=== PATIENT | female | born 1945 | race Caucasian/White ===

== ENCOUNTER 2020-01-18 15:41 | Emergency (ER) | payer MEDICARE, SELFPAY ==
--- NOTE | 2020-01-18 15:52 | ED.SKABFB ---
HPI - Skin/Abscess/Foreign Bdy General Chief complaint: Skin/Abscess/Foreign Body Stated complaint: possible insect bite Time Seen by Provider: 01/18/20 15:52 Source: patient and RN notes reviewed History of Present Illness HPI narrative: Patient is a 74-year-old female who presents the urgent care with complaints of a cat bite left hand to the right hand. Patient states it was from her own cat and her cat is up-to-date on their rabies vaccinations. Patient states that her doctor sent her because she might need the hand drained . Patient is unsure if she is up-to-date on her tetanus. States that the hand is swollen and red but currently denies of any pain, nausea, vomiting, fever. Patient states that she is cleaned it with alcohol and peroxide as well as taking Aleve for the pain. No other acute complaints. No acute distress noted. Patient read the plan of care. Related Data Home Medications Medication Instructions Recorded Confirmed atorvastatin [Lipitor] 40 mg PO DAILY 01/18/20 01/18/20 insulin glargine [Lantus Solostar SUBCUT 01/18/20 U-100 Insulin] Allergies Allergy/AdvReac Type Severity Reaction Status Date / Time adhesive tape Allergy Mild RASH/ Verified 01/18/20 15:58 REDDENED SKIN Latex, Natural Rubber Allergy Mild REDDESS Verified 01/18/20 15:58 Review of Systems Review of Systems: Narrative: CONSTITUTIONAL: Denies fever, chills, or sweats. EYES: Denies visual changes, redness, or discharge. ENT: Denies rhinorrhea, congestion, sore throat, or otalgia. CARDIOVASCULAR: Denies chest pain, palpitations, or edema. RESPIRATORY: Denies cough or dyspnea. GASTROINTESTINAL: Denies abdominal pain, nausea, vomiting, or diarrhea. GENITOURINARY: Denies dysuria or hematuria. SKIN: Reports of a red swollen cat bite to the left hand MUSCULOSKELETAL: Denies back pain, joint pain, or myalgia. NEUROLOGIC: Denies headache, numbness, or weakness. All other systems reviewed are negative, except as documented in HPI. [facility] Past Medical History Medical History (Updated 01/18/20 @ 16:19 by BETTY Becerra) Diverticulosis Dyslipidemia Hearing loss in right ear Osteoarthritis Type 2 diabetes mellitus without complications Surgical History Surgical History (Updated 12/18/19 @ 18:05 by Cesar Smith MD) History of arthroplasty of right knee (~12/05/17) 01/2018 Social History Social History Smoking status: Former smoker Second hand tobacco smoke exposure: No Smoking end date: 06/20/1964 Alcohol intake: current Substance use: never Substance use type: does not use Gender identity (if verbalized by the patient): Female Comments At the time of my signature, I reviewed and agree with the nursing past medical, surgical, social, and family history. There is no relevant family history pertinent to the patient complaint. Exam Narrative: Exam Narrative: GENERAL: This is a well-nourished, well-developed patient, in no apparent distress. HEAD: normocephalic, atraumatic. EYES: PERRL. Sclera clear/white. Vision is grossly intact. EARS: External ears normal NOSE: External nose normal with no obvious nasal discharge, nares without redness, no rhinorrhea. THROAT: Mucous membranes moist NECK: Neck supple SKIN: Approximately 8 cm of erythema with very mild edema noted to the dorsal aspect of the left hand with a small 0.25 cm pinpoint scab NEURO: awake, alert, and oriented to person, place and time. There were no obvious focal neurologic abnormalities. EXTREMITIES: Positive strong left radial pulse with capillary refill less than 2 seconds. Course Vital Signs Vital signs: Vital Signs Temperature 97.6 F 01/18/20 15:54 Pulse Rate 67 01/18/20 15:54 Respiratory Rate 18 01/18/20 15:54 Blood Pressure 164/77 H 01/18/20 15:54 Pulse Oximetry 100 01/18/20 15:54 Temperature 97.6 F 01/18/20 15:54 Pulse Rate 67 01/18/20
[2020-01-18 15:54] VITALS: BP 164/77; PULSE 67; RESP 18; TEMP 36.4; O2SAT 100
[2020-01-18] MEDS: TETANUS,DIPHTHERIA,AC PERTUSSIS ADULT (0.5 ML) BOOSTRIX IM (16:21)
== END 2020-01-18 16:38 | disposition home or self-care (01) ==
PROVIDERS: Emergency Provider Nurse Practitioner Family; PCP Family Medicine
DX: S61.452A Open bite of left hand, initial encounter (principal); E78.5 Hyperlipidemia, unspecified; M19.90 Unspecified osteoarthritis, unspecified site; E11.9 Type 2 diabetes mellitus without complications; Z87.891 Personal history of nicotine dependence; R03.0 Elevated blood-pressure reading, without diagnosis of hypertension; Z23 Encounter for immunization; W55.01XA Bitten by cat, initial encounter
CPT/HCPCS: 90471; 90715; 99213; G0463

== ENCOUNTER 2020-05-17 18:53 | Inpatient (IN) | payer MEDICARE, SELFPAY ==
[2020-05-17] VITALS (31 sets, daily range): BP systolic 110–143; BP diastolic 49–88; PULSE 84–118; RESP 16–29; TEMP 36.3–36.7; O2SAT 93–100
--- NOTE | ~2020-05-17 | US_ITS ---
US venous doppler [facility] DATE: 05/18/2020 12:14 INDICATION: Severe acute pulmonary emboli bilaterally noted on 05/09/2020 CT pulmonary scan TECHNIQUE: Real-time and color flow imaging and Doppler analysis of the veins of the lower extremitie s COMPARISON: 05/17/2020 CT pulmonary scan FINDINGS: The patient was unable to tolerate compression for evaluation of the mid to distal right fe moral vein. Otherwise there is spontaneous and phasic flow and normal augmentation and color flow signal and norm al compression of the deep veins of both lower extremities. IMPRESSION: Incomplete evaluation of the right mid to distal femoral vein due to inability of the pat ient to tolerate compression. Otherwise no evidence of deep venous thrombosis of the lower extremities Reviewed, dictated and finalized at [facility]. Reviewed, dictated and finalized at [facility]. T OPERATIONS MANAGER IMPRESSION: Incomplete evaluation of the right mid to distal femoral vein due t o inability of the patient to tolerate compression. Otherwise no evidence of deep venous thrombosis of the lower extremities
--- NOTE | ~2020-05-17 | XR_ITS ---
EXAMINATION: XR chest 2V DATE: 05/17/2020 19:30 INDICATION: Shortness of breath. TECHNIQUE: Frontal and lateral views of the chest were obtained. COMPARISON: Chest 2 views 10/31/2017 FINDINGS: The chest demonstrates clear lungs without pneumonia, pleural effusion, or pneumothorax. Th e heart size is normal. There are prominent paracardial fat pads. IMPRESSION: 1. No acute cardiopulmonary disease. Reviewed, dictated and finalized at [facility]. FING RN
--- NOTE | ~2020-05-17 | CT_ITS ---
EXAMINATION: CTA chest PE protocol DATE: 05/17/2020 21:15 INDICATION: Shortness of breath. TECHNIQUE: Computed tomography angiography (CTA) of the chest was performed with 100 mL Omnipaque-350 intravenous contrast timed to evaluate the pulmonary arteries. Coronal maximum intensity projection 3D-reconstructions were created by the technologist. Automated exposure control and iterative reconst ruction technique were employed. The dose-length product was 567.98 mGy-cm. COMPARISON: CT abdomen and pelvis 03/18/2008 FINDINGS: There is mild atelectasis bilaterally. The heart demonstrates right ventricular enlargement , consistent with right heart strain. There are coronary artery calcifications. No pericardial effusi on. There are acute pulmonary emboli involving all lobes bilaterally. There are saddle emboli in the distal main right and left pulmonary arteries. There is severe thoracic spondylosis. IMPRESSION: 1. Severe acute pulmonary emboli bilaterally with right heart strain. I called this result to Dr. Roddy louie. Reviewed, dictated and finalized at [facility]. CELL TESTER IMPRESSION: 1. Severe acute pulmonary emboli bilaterally with right heart strain. I called this result to Dr. Lara.
--- NOTE | 2020-05-17 19:12 | ECG_ITS ---
Measurements Intervals [place] Rate: 79 P: 56 GA: 160 QRS: -89 QRSD: 93 T: 25 QT: 355 QTc: 407 Interpretive Statements SINUS RHYTHM VENTRICULAR PREMATURE COMPLEXES POOR R WAVE PROGRESSION, CONSIDER ANTERIOR INFARCT BASELINE ARTIFACT- I, II, III, AVR, AVL, V4-V5 ABNORMAL ECG Electronically Signed On 05-18-2020 8:00:55 ELEVATOR SERVICEMAN by Del Arcos D.O.
[2020-05-17 19:24] LABS: Basophils Absolute Auto 0.1 K/mm3 (0.0-0.1); Basophils Percent Auto 0.3 % (0.2-1.2); Eosinophils Absolute Auto 0.1 K/mm3 (0-0.3); Eosinophils Percent Auto 0.8 % (0-4.4); Hematocrit 43.5 % (37.0-47.0); Hemoglobin 14.8 g/dL (12.0-15.0); Immature Granulocyte Absolute 0.05 K/mm3 (0.00-0.031); Immature Granulocyte Percent A 0.3 % (0-0.5); Lymphocytes Absolute Auto 1.07 K/mm3 (0.9-3.2); Lymphocytes Percent Auto 6.3 % (18.3-44.2); Mean Corpuscular Hemoglobin 29.8 pg (26-34); Mean Corpuscular Volume 87.7 fl (80-100); Monocytes Absolute Auto 0.7 K/mm3 (0.1-0.6); Monocytes Percent Auto 4.2 % (2.6-8.5); Neutrophils Absolute Auto 15.1 K/mm3 (1.3-6.7); Neutrophils Percent Auto 88.1 % (45.5-73.1); Platelet Count Result 169 k/mm3 (150-375); Red Blood Count 4.96 M/mm3 (4.2-5.4); Red Cell Distribution Width 11.9 % (11.5-14.5); White Blood Count 17.1 K/mm3 (4.5-10.0)
--- NOTE | 2020-05-17 19:25 | ED.SOB ---
HPI - SOB/Dyspnea General Chief Complaint: Shortness of Breath/Dyspnea Stated Complaint: sob Time Seen by Provider: 05/17/20 19:23 Source: patient Mode of arrival: EMS Limitations: no limitations History of Present Illness HPI Narrative: Patient is 74 years old white female presents with shortness of breath and dizziness. 5 days ago patient was lifting small boxes and noticed severe shortness of breath with lifting and activity. Patient continued to lift the boxes and feels she finished all of them. Patient denied any chest pain at that time. Today patient left the few boxes again and subsequently developed some shortness of breath, dizziness and diaphoresis. Patient again denies any chest pain, fever, chills, nausea, vomiting, exposure to anybody known having COVID-19. Patient lives alone, does not take blood thinner. History of hyperlipidemia and diabetes. Patient denies any stress. Does not take oxygen at home. On arrival to the emergency room her EKG showed normal sinus rhythm at 79 bpm. When I went see the patient in the room her heart rate was running at 110 bpm. Patient denies any chest pain, back pain or leg pain Monitor stri by the EMT showed that patient had atrial fibrillation at 137 bpm prior to arrival. On arrival the monitor showed normal sinus rhythm at 79 bpm. When I went see the patient in the room her monitor showed sinus tachycardia at 110 bpm Related Data Allergies Allergy/AdvReac Type Severity Reaction Status Date / Time adhesive tape Allergy Mild RASH/ Verified 04/07/20 15:26 REDDENED SKIN Latex, Natural Rubber Allergy Mild REDDESS Verified 04/07/20 15:26 Review of Systems Review of Systems: Narrative: CONSTITUTIONAL: Denies fever, chills, or sweats. EYES: Denies visual changes, redness, or discharge. ENT: Denies rhinorrhea, congestion, sore throat, or otalgia. CARDIOVASCULAR: Denies chest pain, palpitations, or edema. RESPIRATORY: dyspnea. GASTROINTESTINAL: Denies abdominal pain, nausea, vomiting, or diarrhea. GENITOURINARY: Denies dysuria or hematuria. SKIN: Denies rash or itching. MUSCULOSKELETAL: Denies back pain, joint pain, or myalgia. NEUROLOGIC: Denies headache, numbness, or weakness. PSYCHIATRIC: Denies anxiety or depression. [facility] Past Medical History Medical History Diverticulosis Dyslipidemia Hearing loss in right ear Osteoarthritis Type 2 diabetes mellitus without complications Surgical History Surgical History History of arthroplasty of right knee (~12/05/17) 01/2018 Family History Family History Mother Family history of lung cancer Other Diabetes mellitus Family history of cardiovascular disease Social History Social History Smoking status: Former smoker Second hand tobacco smoke exposure: No Smoking end date: 06/20/1964 Alcohol intake: current Substance use: never Substance use type: does not use Gender identity (if verbalized by the patient): Female Exam Narrative: Exam Narrative: General appearance: Well-developed, well-nourished Skin: Normal color Head: Normocephalic, nontraumatic Eyes: Clear conjunctiva ENT: Oropharynx normal, ears normal, nose normal Neck: Supple, nontender Chest and respiratory: Airway patent, no respiratory distress, no accessory muscle use Heart: Regular rate/rhythm Abdomen: Soft, nontender, no organomegaly, quiet bowel sounds Vascular: Normal peripheral pulses, normal capillary refill. Musculoskeletal: Normal range of motion, nontender back Neurologic: Alert and oriented ?3, INVESTMENT FUND MANAGER is normal as tested, no gross motor deficit
[2020-05-17 19:36] LABS: Anion Gap 8 mmol/L (8-16); Blood Urea Nitrogen 11 mg/dL (7-17); Calcium 9.3 mg/dL (8.4-10.2); Carbon Dioxide 27 mmol/L (22-30); Chloride 103 mmol/L (98-107); Estimated Glomerular Filt Rate > 60; Glucose 241 mg/dL (65-105); Partial Thromboplastin Time 24.4 SECONDS (22.3-36.8); Potassium 4.1 mmol/L (3.4-5.0); Prothrombin Time 13.6 Seconds (11.1-14.7); Sodium 138 mmol/L (137-145)
[2020-05-17 19:49] LABS: NT Pro B Type Natriuretic Pept 1050 PG/ML (5-100); Troponin I 0.431 ng/mL (0.000-0.034)
--- NOTE | 2020-05-17 19:49 | ECG_ITS ---
Measurements Intervals [place] Rate: 110 P: 56 PA: 168 QRS: 261 QRSD: 97 T: 12 QT: 343 QTc: 466 Interpretive Statements SINUS TACHYCARDIA ANTERIOR INFARCT, AGE INDETERMINATE INFERIOR INFARCT, AGE INDETERMINATE BASELINE ARTIFACT- I, III, AVL ABNORMAL ECG Electronically Signed On 05-18-2020 8:02:39 PULMONOLOGIST by Del Arcos D.O.
[2020-05-17 19:51] LABS: Alveolar/Arterial O2 Gradient 64.9 mmHg; Base Excess ABG -1.9 mEq/l (+/-2.0); Fractional Inspired Oxygen 21 %; HCO3 ABG 20.5 mEq/l (22.0-26.0); Oxygen Content ABG 18.9 %vol (16.0-22.0); Oxygen Saturation ABG 88.1 % (95.0-100.0); Oxyhemoglobin 86.6 % THb (90.0-100.0); PCO2 ABG 29.1 mmHg (35.0-45.0); PO2 FiO2 Ratio Arterial Blood 2.38 %; Total Hemoglobin 15.6 g/dL (12.0-18.0); pH ABG 7.465 (7.350-7.450)
[2020-05-17 19:53] LABS: Device ROOM AIR; Modified Allen's Test Pass; Site Drawn RIGHT RADIAL
[2020-05-17 20:01] LABS: D Dimer 10.14 ug/mL (<0.48)
[2020-05-17] MEDS: METOPROLOL TARTRATE INJ 5 MG/5 ML VIAL IV PUSH ×3 (20:15→20:25)
[2020-05-17] MEDS: ENOXAPARIN 100 MG/ML SYRINGE 90 MG SUB-Q (20:23)
--- NOTE | 2020-05-17 22:18 | PM.IMHP ---
H&P: HPI History of Present Illness Date/Time: 05/17/20 22:18 Chief complaint: pulmonary embolism, paroxysmal A. fib Narrative: Riddhi Mandujano is a 74 year old female with PMHx significant for T2DM, Hyperlipidemia, patient has been in her usual state of health up to today when she felt sob, dizzy, diaphoretic, had to seat down and felt like passing out. 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 No chest pain when taking a deep breath, no cough, no sputum production, no fevers, no rigors, no chills, no calves tenderness. Preliminary work up is significant for acute PE in both of her lungs. Review of Systems Review of Systems: Narrative: SOB, diaphoresis. Constitutional: Comments: no fevers, no rigors, no chills. Eyes: Comments: no vision changes. ENT: Comments: no ear ache, no throat pain, no nasal congestion or discharge. Cardiovascular: Comments: no chest pain. no led swelling. Respiratory: Comments: sob. Gastrointestinal: Comments: no n/v/abdominal pain. Musculoskeletal: Comments: no muscle aches or pains. Neurologic: Comments: no sensory motor deficit. Hematologic/Lymphatic: Comments: no LAP. [facility] Past Medical History Medical History Diverticulosis Dyslipidemia Hearing loss in right ear Osteoarthritis Type 2 diabetes mellitus without complications Surgical History Surgical History History of arthroplasty of right knee (~12/05/17) 01/2018 Family History Family History (Updated 05/18/20 @ 00:43 by Jessica Moody RN) Mother Lung cancer Social History Social History Smoking packs per day: 0.5 Smoking cigarettes per day: 10.0 Years smoked: 2 Smoking pack-years: 1.00 Smoking status: Light tobacco smoker Second hand tobacco smoke exposure: No Smoking end date: 06/20/1964 Additional smoking assessment comments: A PACK OF CIGARETTES LASTED A WEEK Alcohol intake: former Substance use: never Substance use type: does not use Gender identity (if verbalized by the patient): Female Spiritual care concerns: No Meds Home Medications and Allergies Home Medications Medication Instructions Recorded Confirmed Type fenofibrate 160 mg tablet 160 mg PO DAILY #30 tablet 04/07/20 05/18/20 Rx insulin glargine 100 unit/mL (3 See Rx Instructions .ROUTE 05/07/20 05/18/20 Rx mL) subcutaneous pen .COMPLEX #15 ml Allergies Allergy/AdvReac Type Severity Reaction Status Date / Time adhesive tape Allergy Mild RASH/ Verified 04/07/20 15:26 REDDENED SKIN Latex, Natural Rubber Allergy Mild REDDESS Verified 04/07/20 15:26 Vital Signs Vital Signs - 24 hr 05/17/20 19:06 05/17/20 19:10 05/17/20 19:15 Temperature 97.3 F L Pulse Rate 107 H 106 H 105 H Respiratory Rate 20 26 H 24 H Blood Pressure 132/76 129/76 Pulse Oximetry 99 05/17/20 19:16 05/17/20 19:27 05/17/20 19:30 Temperature Pulse Rate 106 H 112 H 109 H Respiratory Rate 26 H 29 H 23 H Blood Pressure 129/76 Pulse Oximetry 98 95 05/17/20 19:45 05/17/20 20:00 05/17/20 20:13 Temperature Pulse Rate 112 H 111 H 114 H Respiratory Rate 21 H 25 H 16 Blood Pressure 143/49 H Pulse Oximetry 97 100 05/17/20 20:15 05/17/20 20:20 05/17/20 20:24 Temperature Pulse Rate 113 H 97 90 Respiratory Rate 20 18 Blood Pressure 143/49 H Pulse Oximetry 97 98 05/17/20 20:25 05/17/20 20:27 05/17/20 20:30 Temperature Pulse Rate 92 94 93 Respiratory Rate 20 25 H Blood Pressure 132/84 Pulse Oximetry 98 96 05/17/20 20:31 05/17/20 20:45 05/17/20 20:46 Temperature Pulse Rate 85 84 86 Respiratory Rate 19 17 20 Blood Pressure 110/79 125/77 Pulse Oximetry 94 95 96 05/17/20 21:03 05/17/20 21:15 05/17/20 21:30 Temperature Pulse Rate 88 87 89 Respiratory Rat
--- NOTE | 2020-05-17 22:59 | PC.NURSE ---
pt refusing bed garcia and wheel chair to restroom. pt ambulatory with 1 stand by assist. pt did have o2 drop to 88% RA, 2LNC applied for comfort only.
[2020-05-18] VITALS (13 sets, daily range): BP systolic 118–144; BP diastolic 64–88; PULSE 78–102; RESP 16–20; TEMP 35.9–36.8; O2SAT 96–99; BMI 30.6
--- NOTE | 2020-05-18 00:24 | PC.NURSE ---
This patient, Riddhi Mandujano, was admitted to IMU Room 207-01. Patient/family oriented to hospital policies and general routines including ID bracelet, bed and alarms, visiting hours, pain management, procedures, bathroom and other care routines, personal items, smoking policy, room service/diet, and visiting hours. Information on how to activate the Rapid Response Team has been discussed. Patient/Family are encouraged to report perceived risks to care and to ask questions if they do not understand what they are told or what they should do.
[2020-05-18 01:38] LABS: Basophils Percent Auto 0.3 % (0.2-1.2); Eosinophils Percent Auto 0.1 % (0-4.4); Immature Granulocyte Absolute 0.03 K/mm3 (0.00-0.031); Immature Granulocyte Percent A 0.3 % (0-0.5); Lymphocytes Absolute Auto 0.99 K/mm3 (0.9-3.2); Lymphocytes Percent Auto 8.6 % (18.3-44.2); Mean Corpuscular HGB Conc 34.1 g/dl (32-36); Mean Corpuscular Hemoglobin 30.2 pg (26-34); Mean Corpuscular Volume 88.5 fl (80-100); Mean Platelet Volume 10.9 fl (7.4-10.4); Monocytes Absolute Auto 0.6 K/mm3 (0.1-0.6); Monocytes Percent Auto 4.8 % (2.6-8.5); Neutrophils Absolute Auto 9.9 K/mm3 (1.3-6.7); Neutrophils Percent Auto 85.9 % (45.5-73.1); Platelet Count Result 179 k/mm3 (150-375); Red Blood Count 4.97 M/mm3 (4.2-5.4); White Blood Count 11.5 K/mm3 (4.5-10.0)
[2020-05-18 01:54] LABS: Prothrombin Time 14.2 Seconds (11.1-14.7)
[2020-05-18 01:55] LABS: Partial Thromboplastin Time 33.4 SECONDS (22.3-36.8)
[2020-05-18 02:18] LABS: Troponin I 0.625 ng/mL (0.000-0.034)
[2020-05-18] MEDS: HEPARIN SOD/D5W 100 UNITS/ML 25,000 UNITS/250 ML BAG 13 UNITS IV CONT (02:34)
[2020-05-18] MEDS: HEPARIN SODIUM 5,000 UNITS/ML VIAL 5500 UNITS IV PUSH (02:35)
--- NOTE | 2020-05-18 08:28 | PM.CNCAR ---
Assessment and Plan Assessment and plan (1) PAF (paroxysmal atrial fibrillation): Code(s): I48.0 - Paroxysmal atrial fibrillation Status: Acute Assessment and Plan: The patient had paroxysmal AFib RVR on admission with no prior history of a arrhythmias. I believe this is acute AFib RVR secondary to right heart strain and multiple PEs/hypoxia. Has had no further AFib overnight and is currently not on any rate limiting medications. Likely will resolve with time. In the meantime, p.r.n. IV metoprolol if there is a recurrence. Counseled patient regarding her PAF. (2) Elevated troponin: Code(s): R77.8 - Other specified abnormalities of plasma proteins Status: Acute Assessment and Plan: Elevated troponin, Type 2 LA, likely secondary to PEs. Had a negative Lexiscan in 2018 and no anginal symptoms. No need for further ischemia evaluation. (3) Pulmonary embolism: Qualifiers: Acute cor pulmonale presence: with acute cor pulmonale Chronicity: acute Pulmonary embolism type: unspecified Qualified Code(s): I26.09 - Other pulmonary embolism with acute cor pulmonale Code(s): I26.99 - Other pulmonary embolism without acute cor pulmonale Status: Acute Assessment and Plan: Multiple bilateral PEs and saddle emboli. Borderline oxygenation on admission but is doing now well on 2 L. Has right ventricular enlargement on CT scan; echo tomorrow. Counseled patient on the life-threatening nature of pulmonary emboli and need for appropriate treatment. On a heparin drip. Eventually change to Eliquis? Treatment per hospitalist Patient is in a hurry to get home. (4) Coronary artery calcification: Code(s): I25.10 - Atherosclerotic heart disease of [place] coronary artery without angina pectoris; I25.84 - Coronary atherosclerosis due to calcified coronary lesion Status: Acute Assessment and Plan: Coronary calcification noted by CT scan. Recommend changing fenofibrate to a statin because of coronary artery calcification and history of diabetes . (5) Type 2 diabetes mellitus without complications: Qualifiers: Diabetes mellitus chcf insulin use: with terminal operator use Qualified Code(s): E11.9 - Type 2 diabetes mellitus without complications; Z79.4 - terminal operator (current) use of insulin Code(s): E11.9 - Type 2 diabetes mellitus without complications Status: Acute History of Present Illness History of Present Illness Consult date/time: 05/18/20 08:28 Requesting physician: Nara Membreno MD Consult reason: atrial fibrillation Reason For Visit: pulmonary embolism, paroxysmal A. fib Narrative: Date of service: 05/18/2020 Riddhi Mandujano is a 74-year-old white female whom were asked to see at the request of Dr. Almeida for our advice and opinion regarding her paroxysmal atrial fibrillation and elevated troponins, in consultation. She actually was admitted with bilateral pulmonary emboli. 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 It happened again on Tuesday, and yesterday (Tuesday) she had another episode of shortness of breath associated w/diaphoresis and dizziness, and called the ambulance. On their arrival she was mildly hypoxic with O2 sat 84% and was in AFib RVR, heart rates ranging from 110-165 BP EM. No chest pain or pressure. . EKG done by EMS, which I personally reviewed, showed atrial fibrillation rate 137, left anterior hemiblock and slight ST depression in the lateral leads. Poor R-wave progression. She alternated between AFib RVR and NSR in the ER. She was given IV metoprol. A pulmonary CTA showed bilateral multiple pulmonary emboli with saddle emboli in the distal right and left pulmona
[2020-05-18 08:41] LABS: Glucose Point of Care 162 (65-105)
[2020-05-18 09:06] LABS: Partial Thromboplastin Time 125.2 SECONDS (22.3-36.8)
[2020-05-18] MEDS: ATORVASTATIN 20 MG TABLET PO (12:30)
[2020-05-18 12:41] LABS: Glucose Point of Care 159 (65-105)
[2020-05-18 17:37] LABS: Glucose Point of Care 169 (65-105)
--- NOTE | 2020-05-18 18:26 | PM.IMPN ---
Progress Note: A&P Assessment and Plan (1) Pulmonary embolism: Qualifiers: Acute cor pulmonale presence: with acute cor pulmonale Chronicity: acute Pulmonary embolism type: unspecified Qualified Code(s): I26.09 - Other pulmonary embolism with acute cor pulmonale Code(s): I26.99 - Other pulmonary embolism without acute cor pulmonale Status: Acute Assessment and Plan: Patient presents with SOB and dizziness. CXR clear. CTA chest showing severe acute pulmonary emboli bilaterally with right heart strain. heart starin seen with elevated Troponin and BNP. Heparin drip started. Patient admitted to the IMU. Venous doppler negative for DVT (although incomplete in the right mid and distal femoral vein). Patient has been weaned off oxygen. Echo ordered. Continue Heparin for now. Discuss with Case mngmt to see if patient's insurance will pay for Eliquis. (2) Type 2 diabetes mellitus without complications: Qualifiers: Diabetes mellitus clerical office insulin use: with shelter use Qualified Code(s): E11.9 - Type 2 diabetes mellitus without complications; Z79.4 - tumor registrar (current) use of insulin Code(s): E11.9 - Type 2 diabetes mellitus without complications Status: Acute Assessment and Plan: A1c 8.1 last month. Glucose reviewed on 05/18/2020. Glucose remains well controlled. Will start AccuCheks covering with sliding scale. Hypoglycemia protocol available as needed. Will resume lantus once she is eating better. Diabetic diet. (3) Hyperlipidemia: Qualifiers: Hyperlipidemia type: unspecified Qualified Code(s): E78.5 - Hyperlipidemia, unspecified Code(s): E78.5 - Hyperlipidemia, unspecified Status: Acute Assessment and Plan: TG 100, TC 253, LDL 192 and HDL 43 on 04/14/20. On Fenofibrate on admission but changed to Lipitor 20mg. Will advance to high intensity statin. Check LFTs. (4) PAF (paroxysmal atrial fibrillation): Code(s): I48.0 - Paroxysmal atrial fibrillation Status: Acute Assessment and Plan: pAFib noted by tele. Related to the PE and right heart strain. TSH slightly elevated at 6.3 but suspect subclinical hypothyroidism. Anticoagulation as above. Continue tele. Appreciate Cardiology input. May need Metoprolol if persistent. (5) Elevated troponin: Code(s): R77.8 - Other specified abnormalities of plasma proteins Status: Acute Assessment and Plan: Trop peaked at 0.625. EKG reviewed and showing poor R wave progression and right heart strain. Echo pending. [place] related to right heart strain and not for ACS. (6) Coronary artery calcification: Code(s): I25.10 - Atherosclerotic heart disease of [place] coronary artery without angina pectoris; I25.84 - Coronary atherosclerosis due to calcified coronary lesion Status: Acute Assessment and Plan: Coronary calcifications noted by CTA. Has risk factors with poorly controlled HLD and DM. Add ASA and advance Lipitor. (7) Leukocytosis: Code(s): D72.829 - Elevated white blood cell count, unspecified Status: Acute Assessment and Plan: WBC 17K on admission felt related to stres response. Repeat down to 11K on no abx. Subjective Date/time seen: 05/18/20 18:26 Interval history: Date of service 05/18 74yo female With Dm here for SOB and found to have severe acute pulmonary embolism. Elsy feels well. She slept most of the day. She was able to be weaned off O2. No recent long plane rides or car rides. She has not be incapacitated recently in any way. No recent illnesses. Last mammogram 2019, last colonoscopy 2013-. Exam Narrative: Exam Narrative: AF 97.5 144/68 78 16 99% ra Gen - NARD lying semi-recumbent in bed Chest - few rhonchi right base o/w clear. nml RR CV - RRR S1/S2; Tele showing episode of AFib yesterday and probably a brief run at 1658 Abd - Soft, NT/ND,
[2020-05-18] MEDS: HEPARIN SOD/D5W 100 UNITS/ML 25,000 UNITS/250 ML BAG 12 UNITS IV CONT (20:51)
[2020-05-19] VITALS (10 sets, daily range): BP systolic 117–152; BP diastolic 31–78; PULSE 75–106; RESP 14–18; TEMP 36.1–36.4; O2SAT 95–99
--- NOTE | 2020-05-19 | ECHO_ITS ---
Patient Info Name: Riddhi Mandujano Age: 74 years : 1945 Gender: Female Ht: 66 in Wt: 192 lbs BSA: 2.04 m2 HR: 78 bpm BP: 146 / 70 mmHg Heart Rhythm: Sinus Rhythm Technical Quality: Good Exam Date: 05/19/2020 8:16 AM Exam Location: [facility] Patient Status: Inpatient Admit Date: 05/17/2020 Staff Ordering Physician: Harman Lara MD Blood Donor Unit Assistant: Shreyas Tolentino, BRANDI, RT Attending Provider: Alex Dick MD Exam Type: CA echo doppler color flow Study Info Indications I26.99 - Other pulmonary embolism without acute cor pulmonale Complete two-dimensional, color flow and Doppler transthoracic echocardiogram is performed. Summary 1. Left ventricular systolic function is normal, estimated at 60-65%. 2. There is mildly increased left ventricular wall thickness. 3. Paradoxical septal wall motion secondary to bundle branch block. 4. Right ventricular chamber dimension is severely enlarged. 5. Right ventricular systolic function is moderate to severely reduced with akinesis of the RV free wall with relative sparing of the apex. This is consistent with An's sign which can be seen with pulmonary embolism and/or RV infarction. 6. Heavy trabeculation right ventricular apex noted. 7. Right atrial chamber dimension is mildly enlarged. 8. There is trace tricuspid valve regurgitation. 9. Unable estimate PA systolic pressure due to poor spectral resolution of tricuspid regurgitant jet velocity. 10. Normal inferior vena cava with >50% collapse upon inspiration consistent with normal right atrial pressure, 5 mmHg. Left Ventricle Left ventricular chamber dimension is normal. Left ventricular systolic function is normal, estimated at 60-65%. There is mildly increased left ventricular wall thickness. The left ventricular diastolic function is grade I diastolic dysfunction. Paradoxical septal wall motion secondary to bundle branch block. Right Ventricle Right ventricular chamber dimension is severely enlarged. Right ventricular systolic function is moderate to severely reduced with akinesis of the RV free wall with relative sparing of the apex. This is consistent with An's sign which can be seen with pulmonary embolism and/or RV infarction. Heavy trabeculation right ventricular apex noted. Left Atria Left atrial chamber dimension is normal. Right Atria Right atrial chamber dimension is mildly enlarged. Aortic Valve The aortic valve is trileaflet. There is no aortic valve stenosis. There is mild aortic valve regurgitation. Pulmonic Valve The pulmonic valve is not well visualized. Mitral Valve The mitral valve has normal leaflets. There is trace mitral valve regurgitation. The mitral valve annulus is mildly calcified. Tricuspid Valve The tricuspid valve leaflets are normal. There is trace tricuspid valve regurgitation. Unable estimate PA systolic pressure due to poor spectral resolution of tricuspid regurgitant jet velocity. Pericardium/Pleural The pericardium appears normal. There is trivial pericardial effusion. Inferior Vena Cava Normal inferior vena cava with >50% collapse upon inspiration consistent with normal right atrial pressure, 5 mmHg. Aorta The aortic root size at the sinus of Valsalva is borderline dilated at 3.7cm.. Left Ventricular Outflow Tract Name Value Normal
[2020-05-19 02:15] LABS: Hematocrit 40.9 % (37.0-47.0); Hemoglobin 14.2 g/dL (12.0-15.0); Mean Corpuscular HGB Conc 34.7 g/dl (32-36); Mean Corpuscular Hemoglobin 30.3 pg (26-34); Mean Corpuscular Volume 87.4 fl (80-100); Platelet Count Result 172 k/mm3 (150-375); Red Blood Count 4.68 M/mm3 (4.2-5.4); Red Cell Distribution Width 11.9 % (11.5-14.5); White Blood Count 9.6 K/mm3 (4.5-10.0)
[2020-05-19 02:31] LABS: Alanine Aminotransferase 15 U/L (4-35); Albumin Level 3.2 g/dL (3.5-5.1); Alkaline Phosphatase 76 U/L (38-126); Anion Gap 5 mmol/L (8-16); Aspartate Amino Transferase 23 U/L (14-36); Bilirubin,Total 0.4 mg/dL (0.2-1.3); Blood Urea Nitrogen 13 mg/dL (7-17); Calcium 8.8 mg/dL (8.4-10.2); Carbon Dioxide 24 mmol/L (22-30); Chloride 107 mmol/L (98-107); Cholesterol 154 mg/dL (0-200); Estimated CRCL calculation 65 ml/min; Estimated Glomerular Filt Rate > 60; Glucose 213 mg/dL (65-105); HDL Direct 35 mg/dL; Potassium 3.6 mmol/L (3.4-5.0); Sodium 136 mmol/L (137-145); Triglycerides 135 mg/dL (<150)
[2020-05-19 02:33] LABS: Partial Thromboplastin Time 58.7 SECONDS (22.3-36.8)
[2020-05-19 02:42] LABS: LDL Cholesterol Direct 96 mg/dL
[2020-05-19] MEDS: HEPARIN SODIUM 5,000 UNITS/ML VIAL 3000 UNITS IV PUSH (04:05)
[2020-05-19 08:36] LABS: Glucose Point of Care 191 (65-105)
[2020-05-19] MEDS: ATORVASTATIN 40 MG TABLET PO (09:45)
[2020-05-19] MEDS: ASPIRIN 81 MG CHEWABLE TABLET PO (10:01)
[2020-05-19 11:55] LABS: Glucose Point of Care 246 (65-105)
[2020-05-19] MEDS: INSULIN ASPART (*BKC) 100 UNITS/ML SUB-Q (13:33)
--- NOTE | 2020-05-19 15:11 | PM.PNCARD ---
Progress Note: A&P Assessment and Plan (1) PAF (paroxysmal atrial fibrillation): Code(s): I48.0 - Paroxysmal atrial fibrillation Status: Acute Assessment and Plan: We obviously do not know if she has had asymptomatic episodes prior to this event yet this is the first diagnosis. Likely a consequence of acute pulmonary embolism. No recurrence noted thus far. Start metoprolol 12.5 mg twice daily. Systemic anticoagulation PE dosing per primary service. Follow-up with Dr. Gomez as an outpatient. 2D echocardiogram personally reviewed significant RV enlargement, RV hypokinesis consistent with An sign related to pulmonary embolism. We discussed this at length and expectation that these changes will improve over time but no guarantee they will completely normalize. Stable from cardiac perspective. If in house overnight telemetry on BB. Please do not hesitate to contact us with any additional questions or concerns. (2) Elevated troponin: Code(s): R77.8 - Other specified abnormalities of plasma proteins Status: Acute Assessment and Plan: Elevated troponin, Type 2 [place], likely secondary to PEs. Had a negative Lexiscan in 2018 and no anginal symptoms. No need for further ischemia evaluation. (3) Pulmonary embolism: Qualifiers: Acute cor pulmonale presence: with acute cor pulmonale Chronicity: acute Pulmonary embolism type: unspecified Qualified Code(s): I26.09 - Other pulmonary embolism with acute cor pulmonale Code(s): I26.99 - Other pulmonary embolism without acute cor pulmonale Status: Acute Assessment and Plan: Multiple bilateral PEs and saddle emboli with RV enlargement and hypokinesis PT OT and ambulation prior to discharge. Disposition per primary service. PE dosing systemic anticoagulation. Remains on heparin infusion in the interval period management per primary service. (4) Coronary artery calcification: Code(s): I25.10 - Atherosclerotic heart disease of [place] coronary artery without angina pectoris; I25.84 - Coronary atherosclerosis due to calcified coronary lesion Status: Acute Assessment and Plan: Coronary calcification noted by CT scan. Recommend changing fenofibrate to a statin because of coronary artery calcification and history of diabetes . 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 Subjective Date/time seen: Date of service: 05/19/20 15:11 Follow-up for paroxysmal atrial fibrillation, pulmonary embolism. Patient denies significant chest pain or shortness of breath while lying in bed. She has not been up and around she states. She denies any problems overnight. She is maintaining sinus rhythm on telemetry. 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 Review of Systems Constitutional: Constitutional: Denies headache(s) and Denies lethargy Eyes: Eyes: Reports no additional eye complaints ENT: Denies headache(s), Denies epistaxis and Denies nasal congestion Cardiovascular: Cardiovascular: Denies chest pain, Reports diaphoresis, Reports leg edema, Reports lightheadedness and Reports dyspnea Respiratory: Respiratory: Denies cough, Denies hemoptysis and Reports dyspnea Gastrointestinal: Gastrointestinal: Denies abdominal pain and Denies hematochezia Genitourinary: Genitourinary: Denies hematuria Musculoskeletal: Musculoskeletal: Reports no additional musculoskeletal complaints I
[2020-05-19 16:42] LABS: Partial Thromboplastin Time 26.1 SECONDS (22.3-36.8)
[2020-05-19 16:53] LABS: Glucose Point of Care 158 (65-105)
[2020-05-19] MEDS: APIXABAN 5 MG TABLET 10 MG PO (17:20)
--- NOTE | 2020-05-19 17:41 | PM.DS ---
DS: Admitting Diagnosis Admitting Diagnosis Admitting Diagnosis: pulmonary embolism, paroxysmal A. fib DS: Discharge Diagnosis Discharge Diagnosis (1) Pulmonary embolism: Qualifiers: Acute cor pulmonale presence: with acute cor pulmonale Chronicity: acute Pulmonary embolism type: unspecified Qualified Code(s): I26.09 - Other pulmonary embolism with acute cor pulmonale Code(s): I26.99 - Other pulmonary embolism without acute cor pulmonale Status: Acute Assessment and Plan: Patient presents with SOB and dizziness. CXR clear. CTA chest showing severe acute pulmonary emboli bilaterally with right heart strain. She had elevated Troponin and BNP. Heparin drip started. Patient admitted to the IMU. Venous doppler negative for DVT (although incomplete in the right mid and distal femoral vein). Patient has been weaned off oxygen. Echo showing RV chamber dimension is severely enlarged with moderate to severely reduced RV systolic function with akinesis of the RV free wall with relative sparing of the apex. EF 60-65% and Grade I diastolic dysfunction. She was transitioned to Eliquis. Care Coordination found that the cost ws $30/month for the patient. Discussed with patient about the risks/benefits of anticoagulation. All questions answered. 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 Glucose monitored closely. Glucose remained mostly well controlled. We monitored with AccuCheks covering with sliding scale. Hypoglycemia protocol available as needed. (3) Hyperlipidemia: Qualifiers: Hyperlipidemia type: unspecified Qualified Code(s): E78.5 - Hyperlipidemia, unspecified Code(s): E78.5 - Hyperlipidemia, unspecified Status: Acute Assessment and Plan: TG 135, TC 154, LDL 96 and HDL 35 here. On Fenofibrate on admission but changed to Lipitor for further risk stratification. (4) PAF (paroxysmal atrial fibrillation): Code(s): I48.0 - Paroxysmal atrial fibrillation Status: Acute Assessment and Plan: pAFib noted by tele. Related to the PE and right heart strain. TSH slightly elevated at 6.3 but suspect subclinical hypothyroidism and can be followed by her primary care provider. Anticoagulation as above. Appreciate Cardiology input. Metoprolol added. (5) Elevated troponin: Code(s): R77.8 - Other specified abnormalities of plasma proteins Status: Acute Assessment and Plan: Trop peaked at 0.625. EKG reviewed and showing poor R wave progression and right heart strain. Echo as abone. Elevated Troponin felt related to right heart strain and not for ACS. (6) Coronary artery calcification: Code(s): I25.10 - Atherosclerotic heart disease of [place] coronary artery without angina pectoris; I25.84 - Coronary atherosclerosis due to calcified coronary lesion Status: Acute Assessment and Plan: Coronary calcifications noted by CTA. Has risk factors with poorly controlled HLD and DM. Discussed with Cardiology. Continue Lipitor. (7) Leukocytosis: Code(s): D72.829 - Elevated white blood cell count, unspecified Status: Acute Assessment and Plan: WBC 17K on admission felt related to stres response. Repeat down to 11K on no abx. DS: Summary Hospital Course Reason for hospitalization: 74yo female with DM here for SOB and found to have PE. Please see H&P for details. Hospital Course: As above. Status at Discharge Cognitive/behavioral status at discharge: PATIENT STABLE FOR DISCHARGE Time Spent with Patient Time attestation: Total t
== END 2020-05-19 18:57 | disposition home or self-care (01) | DRG 175 ==
LOC: ANHED 22:06 → ANHIMU 22:15
PROVIDERS: Emergency Medicine; Admitting Provider Internal Medicine; Emergency Provider Emergency Medicine; PCP Family Medicine; Visit Provider Internal Medicine
DX: I26.99 Other pulmonary embolism without acute cor pulmonale (principal); I21.A1 Myocardial infarction type 2; I48.0 Paroxysmal atrial fibrillation; D72.829 Elevated white blood cell count, unspecified; I25.10 Atherosclerotic heart disease of native coronary artery without angina pectoris; E11.9 Type 2 diabetes mellitus without complications; M19.90 Unspecified osteoarthritis, unspecified site; E78.5 Hyperlipidemia, unspecified; F17.200 Nicotine dependence, unspecified, uncomplicated; E02 Subclinical iodine-deficiency hypothyroidism; K57.90 Diverticulosis of intestine, part unspecified, without perforation or abscess without bleeding; H91.93 Unspecified hearing loss, bilateral; Z96.651 Presence of right artificial knee joint; Z79.4 Long term (current) use of insulin
CPT/HCPCS: 36415; 36600; 71046; 71275; 80048; 80053; 80061; 82805; 83735; 83880; 84443; 84484; 85025; 85027; 85380; 85610; 85730; 93005; 93306; 93970; 96372; 96374; 99291; A9270; J1644; J1650; J1815; Q9967

== ENCOUNTER 2022-04-08 08:32 | Outpatient (CLI) | payer MEDICARE, SELFPAY ==
--- NOTE | ~2022-04-08 | DEXA_ITS ---
Bone Density Report Name: TEENA HOSKINS Age: 76 Sex: Female Ethnicity: White Date of : 1945 Indication: postmenopausal; screening for osteoporosis; height loss; hysterectomy; Referring Provider: SIMON FARIAS Study: Bone densitometry was performed. Exam Date: April 08, 2022 Accession number: [id number] Bone Density: Region BMD T-score Z-score Classification AP Spine(L1-L4) 1.276 2.1 4.7 Normal Femoral Neck (Left) 0.695 -1.4 0.9 Osteopenia Total Hip (Left) 0.971 0.2 2.2 Normal Femoral Neck (Right) 0.660 -1.7 0.5 Osteopenia Total Hip (Right) 0.893 -0.4 1.6 Normal Total Hip Mean 0.932 -0.1 1.9 Normal World Health Organization criteria for BMD impression classify patients as: Normal (T-score at or above -1.0), Osteopenia (T-score between -1.0 and -2.5), or Osteoporosis (T-score at or below -2.5). 10-year Fracture Risk(1): Major Osteoporotic Fracture 13% Hip Fracture 3.3% Reported Risk Factors: [place] (), Neck BMD=0.660, BMI=31.8 (1) FRAX(R) Version 3.08. Fracture probability calculated for an untreated patient. Fracture probability may be lower if the patient has received treatment. Clinical Information Provided by Patient: Has the following medical conditions: Hysterectomy Patient maximum height was 66 Menopause Age: 44 No regular weight bearing exercise Drinks caffeinated beverages Onset of menses at age 11 Number of children 0 Impression: The patient has low bone mass, based on the Right Femoral Neck T-score. The patient has an estimated ten-year risk of hip fracture of 3.3% and an estimated ten-year risk of major fracture of 13%, based on the WHO FRAX algorithm. Discussion: BONE DENSITY IS LOW AT ONE OR MORE SKELETAL SITES. THE PATIENT'S BMD AND CLINICAL RISK FACTORS CONTRIBUTE TO THIS PATIENT'S INCREASED RISK OF FRACTURE. This patient's lowest T-score is low at one or more skeletal sites. It meets the World Health Organization's (WHO) criteria for ?low bone mass? (T-score between -1.0 and -2.5). The patient's 10-year risk of hip fracture as calculated by FRAX exceeds the threshold where pharmacological therapy is recommended by the National Osteoporosis Foundation (NOF). However, all treatment decisions require clinical judgment and consideration of individual patient factors, including patient preferences, comorbidities, previous drug use, risk factors not captured in the FRAX model (e.g., frailty, falls, vitamin D deficiency, increased bone turnover, interval significant decline in bone density) and possible under or overestimation of fracture risk by FRAX. The patient should follow a healthful lifestyle (good nutrition with adequate calcium and vitamin D, and appropriate weight-bearing exercise). Follow-Up: Consider a repeat BMD and Vertebral
== END 2022-04-08 08:33 | disposition home or self-care (01) ==
PROVIDERS: PCP Family Medicine; Visit Provider Family Medicine
DX: Z78.0 Asymptomatic menopausal state (principal); M85.89 Other specified disorders of bone density and structure, multiple sites
CPT/HCPCS: 77080

== ENCOUNTER 2023-08-03 14:04 | Outpatient (CLI) | payer MEDICARE, SELFPAY ==
--- NOTE | ~2023-08-03 | MM_ITS ---
EXAMINATION: MM screening dk BI w [place] HISTORY: Screening mammogram TECHNIQUE: Craniocaudal and mediolateral oblique 3-D tomosynthesis images were obtained and synthetic 2-D images were generated. CAD analysis was submitted and interpreted. COMPARISON: 04/05/2018 bilateral screening mammogram BREAST PARENCHYMAL COMPOSITION: The breasts are almost entirely fatty. FINDINGS: Stable circumscribed 6 mm opacity is noted in the anterior upper outer left breast, not sig nificant change since 04/05/2018. There is no evidence of suspicious mass, calcification, or architec tural distortion to suggest malignancy in either breast. There has been no suspicious interval change . IMPRESSION: 1. Stable benign finding of left breast. No mammographic evidence of malignancy in either breast. 2. Recommend routine screening mammography in one year. BI-RADS Category 2: Benign finding(s). Reviewed, dictated and finalized at location B. STICS CLERK
== END 2023-08-03 14:05 | disposition home or self-care (01) ==
LOC: ANHIMG 14:06
PROVIDERS: PCP Family Medicine; Visit Provider Family Medicine
DX: Z12.31 Encounter for screening mammogram for malignant neoplasm of breast (principal); R92.8 Other abnormal and inconclusive findings on diagnostic imaging of breast
CPT/HCPCS: 77063; 77067

== ENCOUNTER 2024-04-18 15:57 | Outpatient (CLI) | payer MEDICARE, SELFPAY ==
--- NOTE | ~2024-04-18 | XR_ITS ---
XR hand RT min 3V Ordering provider: Matilde Booth MD History: . M79.641 - Pain in right hand . Comparison: None. FINDINGS: BONES: No acute fracture or dislocation. JOINT SPACES: Osteoarthritic changes of the first carpometacarpal joint and the joints of the right t humb. Narrowing of the proximal and distal interphalangeal joints. Small bony fragment is seen near t o the distal interphalangeal joint of the fourth finger most likely chronic SOFT TISSUES: Normal. IMPRESSION: No acute osseous abnormality right hand. Polyarticular osteoarthritic changes. Reviewed, dictated and finalized at location A.
--- NOTE | ~2024-04-18 | XR_ITS ---
EXAM: XR shoulder RT min 2V DATE: 04/18/2024 16:31 HISTORY: M25.511 - Pain in right shoulder . COMPARISON: None available. FINDINGS: Decreased mineralization. No fracture or dislocation. No lytic or blastic lesion. Moderate degenerative change at the AC joint and glenohumeral joint. No erosion or periosteal change. Soft ti ssues within normal limits. 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 Reviewed, dictated and finalized at location K.
--- NOTE | ~2024-04-18 | XR_ITS ---
XR wrist RT min 3V Ordering provider: Matilde Booth MD History: . M25.531 - Pain in right wrist . Comparison: April 18, 2024 FINDINGS: BONES: No acute fracture or dislocation. No definite scaphoid fracture. JOINT SPACES: Osteoarthritic changes of the first carpometacarpal joint. SOFT TISSUES: Normal. IMPRESSION: No acute osseous abnormality right wrist. Reviewed, dictated and finalized at location A.
--- NOTE | ~2024-04-18 | XR_ITS ---
EXAM: XR elbow RT min 3V DATE: 04/18/2024 16:31 HISTORY: M25.521 - Pain in right elbow . Fall last week. COMPARISON: None available. FINDINGS: Normal mineralization. No fracture or dislocation. No lytic or blastic lesion. Mild degene rative change at the elbow joint, with medial and lateral epicondylar enthesopathy. No erosion or per iosteal change. Mild displacement of the anterior fat pad. IMPRESSION: Suggestion of a small elbow joint effusion, which can herald the presence of an occult ra dial head fracture. Reviewed, dictated and finalized at location K. IMPRESSION: Suggestion of a small elbow joint effusion, which can herald the pr esence of an occult radial head fracture.
--- NOTE | ~2024-04-18 | XR_ITS ---
EXAM: XR knee RT min 4V DATE: 04/18/2024 16:31 HISTORY: M25.561 - Pain in right knee . COMPARISON: 12/05/2017. FINDINGS: Decreased mineralization. No fracture or dislocation. No lytic or blastic lesion. Uncompli cated appearing right total knee arthroscopy hardware. No erosion or periosteal change. Soft tissues within normal limits. Small joint effusion. IMPRESSION: No radiographic evidence of hardware related complication or acute osseous finding in the right knee. Reviewed, dictated and finalized at location K.
== END 2024-04-18 15:58 | disposition home or self-care (01) ==
PROVIDERS: PCP Family Medicine; Visit Provider Family Medicine
DX: M25.521 Pain in right elbow (principal); M25.531 Pain in right wrist; M25.561 Pain in right knee; M19.041 Primary osteoarthritis, right hand; M19.011 Primary osteoarthritis, right shoulder
CPT/HCPCS: 73030; 73080; 73110; 73130; 73564

== ENCOUNTER 2024-10-01 13:44 | Outpatient (CLI) | payer MEDICARE, SELFPAY ==
--- NOTE | ~2024-10-01 | MM_ITS ---
EXAMINATION: MM screening dk BI w urban HISTORY: Screening TECHNIQUE: Craniocaudal and mediolateral oblique 3-D tomosynthesis images were obtained and synthetic 2-D images were generated. CAD analysis was submitted and interpreted. COMPARISON: Comparison to multiple prior studies sequentially, with oldest reviewed study dated 03/20. BREAST PARENCHYMAL COMPOSITION: Not dense: There are scattered areas of fibroglandular density. FINDINGS: There is no evidence of suspicious mass, calcification, or architectural distortion to sugg est malignancy in either breast. There has been no suspicious interval change. IMPRESSION: 1. No mammographic evidence of malignancy. 2. Recommend routine screening mammography in one year. BI-RADS Category 1: Negative Reviewed, dictated and finalized at location B.
--- OUTSIDE RECORDS SUMMARY | 2024-10-01 15:13 | XMS_ITS | Data Portability ---
Author Organization [place] - [facility], Main Office Address [address] [place] [address] Care Team Providers Care Adjutant General Name Role Phone SIMON FARIAS Primary Care Provider SIMON FARIAS Referring Provider Assessment Encounter Date Assessment Date Assessment LastModified by Organization Details LastModified Time 05/02/2024 05/02/2024 HPI: This is an 78 year old female who presents today for an evaluation of right elbow, wrist, and shoulder pain, which was a result of a fall on April 10. She was walking downstairs, tripped, and fell forward onto her flexed right forearm holding a binder. Reports pain today as a 5/10, but since the fall has not taken anything for pain relief. Notes she has bruising and swelling of the wrist that has since resolved. Does have shoulder pain with ROM, which is new since the fall. ROS: Per patient questionnaire. Physical Exam: General: Normal appearance. No acute distress. Elbow: Normal ROM. No pain with ROM. Tenderness to palpation over the radial head. Small healing abrasion near the lateral epicondyle. 5/5 strength compared to the contralateral side. Normal sensation. Wrist : Normal ROM. No pain with ROM. Tenderness to palpation over the snuffbox and distal radius. Small healing abrasion on the dorsal side of hand. 5/5 strength compared to the contralateral side. Normal sensation. Shoulder: AROM limited due to pain, normal passive ROM. Tenderness to palpation over the anterior portion of biceps. Positive Ramírez-Varun and Neers Test. Positive Empty Can test. Positive Painful arch. Negative Drop arm. 5/5 strength of Supraspinatus and 4/5 strength of Infraspinatus. Normal sensation. Imaging: : Reviewed with patient. Wrist XR: No displaced fractures. Sclerosis at the scaphoid waist. Severe CMC arthritis. Shoulder XR : No fractures or other bony abnormalities. Moderate degenerative changes of the glenohumeral and acromioclavicular joints. Elbow XR: No fractures or other bony abnormalities are identified. The joint space has a normal appearance with no displacement of the anterior or posterior fat pads. Assessment & Plan: Elbow: Range of Motion. No specific treatment is needed. Wrist: Immobilize in thumb spica to help with pain and inflammation. Shoulder: Physical therapy. She has osteoarthritis of the shoulder, which likely flared up when she fell. Voltaren gel. Patient is Diabetic and can t take NSAID. All questions were answered. Patient verbalized understanding of treatment plan Follow Up: 6 weeks after a course of physical therapy. If no improvement with PT, we can consider an injection of the right shoulder. In regards to the wrist, if still have pain over the anatomical snuff box will order MRI. avni Not available 05/02/2024 13:52:13 06/28/2024 06/28/2024 The patient has continuing right shoulder pain after fall back in March of 2024. The patient does have severe glenohumeral osteoarthritis which is [id number] we reviewed the x-rays today in detail. I have advised her we have to manage this. She will continue with physical therapy we will get her new orders for another round of therapy I have advised her to do the exercises on her own at home. She states she is quite active but she will try to keep up with her exercise routine. We talked about doing a shot of cortisone in her shoulder she declined it she also states she can not take oral anti-inflammatory medications and declined oral prednisone as well she has not want to affect her blood sugars. She is going to live with the pain for the most part hopefully conservative measures such as physical therapy and Tylenol Arthritis formula we will help. She will avoid heavy repetitive activities with the shoulder. I have advised her we can see her back as needed if she decides she wants to do a shot of cortisone in the future she can call at any time she voiced understanding agrees with the above plan. [email or web address] Not available 06/28/2024 11:39:29 Plan of Treatment Reminders Order Date Submit Date Provider Last Modified By Organization Details Last Modified Time Details Appointments Any 5 2024 10:00A M Akhil Nuñez, PA Not available Not available Not available Lab None recorded. Referral physical therapist referral - continue 2024 025 [email or web address] [facility], [address], [place], [address], 06/28/2024 12:03:33 physical therapist referral - eval and treat 2023 024 [email or web address] [facility], [address], [place], [address], 05/22/2024 05:18:47 Procedures None recorded. Surgeries None recorded. Imaging XR, elbow, 3 or more view 2023 024 [email or web address] [place], [address], [place], [address], 05/05/2024 21:18:55 Medication Orders None recorded. Patient TargetsNo targets recorded. Patient InstructionsNo instructions recorded. Reason for Referral Physical Therapist Referral for Pain of right elbow joint eval and treat Referring Physician: Senia Sheikh, Orthopedic Surgery, Encounter Date: 05/02/2024 Physical Therapist Referral for Pain of right shoulder joint continue Referring Physician: Akhil Nuñez, Orthopedic Surgery, Encounter Date: 06/28/2024 Results Created Date Observation Date Name Description Value Unit Range Abnormal Flag Note LastModifiedBy Organization Detail LastModifiedTime 04/25/2004/18/2024 XR, elbow , 3 or more view No observ ation record ed. Not Available 11/2023 11:35:09 04/30/2004/18/2024 XR, hand, 3 or more view No observ ation record ed. Not Available 04/20 09:28:51 04/30/2004/18/2024 XR, wrist , 3 or more view No observ ation record ed. Not Available 04/20 09:28:52 04/30/2004/18/2024 XR, shoul servando, 2 or more view No observ ation record ed. Not Available 04/20 09:28:52 04/30/20 24 04/18/2024 XR, knee, 4 or more view No observ ation record ed. Not Available 04/20 09:28:52 05/02/20 XR, elbow , 3 or more view No observ ation record ed. avni [facility] [place] [address], [place], [address], 05/02/2024 13:09:33 Result Notes None recorded. Problems Name Problem SNOMED Code Status Onset Date Resolution Date Notes Provider Name and Address Organization Details Recorded Time Radiothera py follow-up 421351652 Active Not Available [facility] 3 13:30:52 Osteoarthr itis 431353682 Active Not Available [facility] 3 13:30:52 Pain in limb 23441036 Active Not Available [facility] 3 13:30:52 Pain of right elbow joint 4169083845300 9109 Active 2023 SKYLER Castellano null, [facility] 4 10:30:57 Pain of right shoulder joint 7375662722186 9100 Active 2023 Senia Sheikh PA-C [address], [place], [address] , [facility] 4 13:07:32 Pain of right wrist 6091253795174 00 Active 2023 Senia Sheikh PA-C [address], [place], [address] , [facility] 4 13:07:38 Osteoarthr itis of right glenohumer al joint 7077676586799 101 Active 2024 JOEL Ty [address], [place], [address] , [facility] 5 11:39:37 Problem Notes None recorded. Procedures Surgical History Date Name Laterality Status Provider Name and Address Organization Details Recorded Time Knee Replacement completed Khushboo pierre, RMA [place] [facility] 05/02/2024 10:30:33 Imaging Results Imaging Date Name Status LastModified by Organiz ation Details LastModified Time 04/18/2024 XR, elbow, 3 or more view completed Information not available 04/25/2024 11:35:09 04/18/2024 XR, hand, 3 or more view completed Information not available 04/30/2024 09:28:51 04/18/2024 XR, wrist, 3 or more view completed Information not available 04/30/2024 09:28:52 04/18/2024 XR, shoulder, 2 or more view completed Information not available 04/30/2024 09:28:52 04/18/2024 XR, knee, 4 or more view completed Information not available 04/30/2024 09:28:52 05/02/2024 XR, elbow, 3 or more view completed [facility] [place] [address], [place], [address], 05/02/2024 13:09:33 Procedure Notes None recorded. Medical Equipment None Reported. Medications Name Sig Start Date Stop Date Status Note LastModified by Organization Details LastModified Time metformin 500 mg tablet 05/09 completed Not Available Not Available Not Available azithromycin 250 mg tablet 05/09 completed Not Available Not Available Not Available triamcinolone acetonide 0.1 % topical ointment 04/30 completed Not Available Not Available Not Available diclofenac sodium 75 mg tablet,delayed release 05/09 completed Not Available Not Available Not Available insulin admin supplies active Not Available Not Available Not Available Lantus Solostar U-100 Insulin 100 unit/mL (3 mL) subcutaneous pen 05/09 completed Not Available Not Available Not Available Xarelto 10 mg tablet 05/09 completed Not Available Not Available Not Available Vitals Date Recorded Body height Body mass index (BMI) Body weight Provider Name and Address Organization Details Last Updated DateTime 05/02/2024 167.64 cm 28.7 kg/m2 93027.44 SKYLER Hernandes [facility] 05/02/2024 10:28:51 Date Recorded Body height Body mass index (BMI) Body weight Provider Name and Address Organization Details Last Updated DateTime 06/28/2024 167.64 cm 30.7 kg/m2 66359.55 g Mikala Ernandez CNA [employer] [facility] 06/28/2024 11:06:26 Social History Question Answer Notes LastModified by Organizat ion Details LastModified Time Tobacco Smoking Status Unknown If Ever Smoked SKYLER Castellano null, [employer] [facility] 05/02/2024 10:30:19 What Is Your Level Of Alcohol Consumption? Occasional [email or web address] Information not available 05/02/2024 What Was The Date Of Your Most Recent Tobacco Screening? 05/02/2024 [email or web address] Information not available 05/02/2024 Sex: Unknown Functional Status None recorded. Mental Status None recorded. Family History Relationship Description Onset Age of this Age Resolved Age Notes LastModified by Organization Details LastModified Time Paternal Uncle Diabetes mellitus [email or web address] Not available 2023 10:29:52 Medical History No medical history recorded. Gynecological HistoryNo gynecological history recorded. Obstetrics History GPAL:G 0 P 0 0 0 0 Past Encounters Encounter ID Performer Location Encounter Start Date Encounter Closed Date Diagnosis/Indication Diagnosis SNOMED-CT Code Diagnosis ICD10 Code Diagnosis Note [id number] Senia Sheikh PA-C [facility] [place] [address] [place] [address] 05/02/2024 10:05:05 05/02/2024 11:17:20 Pain of right elbow joint 7478570273 1541898 M25.521 Pain of ri ght shoulder joint 7726110939 2858468 M25.511 Pain of right wrist 3169 975309 29274 M25.024 [id number] JOEL Ty [facility] [place] [address] [place] [address] 06/28/2024 11:02:34 06/28/2024 11:35:20 Pain of right elbow joint 3701474451 8156504 M25.521 Pain of ri ght shoulder joint 1097206250 1368383 M25.511 Pain of right wrist 3169 925731 09266 M25.531 Osteoarthr itis of right glenohumeral joint 4413101967 455696 M19.011 Health Concerns Section Related Observation LastModified by Organization Detai ls LastModified Time None Recorded Concern Status LastModified by Organization Details LastModified Time None Recorded Advance Directives Directive None Recorded Payers Encounter Date Sequence Insurance Name Policy Number Policy Busby Covered Member ID Busby Member ID Guarantor Name 05/02/2024 1 [place] Riddhi Mandujano [id number] Riddhi [employer] 05/02/2024 2 [employer] (MEDICARE SUPPLEMENT) Riddhi Mandujano [id number] Riddhi [employer] 06/28/2024 1 [place] Riddhi Mandujano [id number] Riddhi [employer]an 06/28/2024 2 [employer] (MEDICARE SUPPLEMENT) Riddhi Mandujano [id number] Riddhi Mandujano Notes Date Note Type Note Provider Name and Address Organization Details Recorded Time 06/28/2024 text/html The patient retu rns for recheck of her right shoulder and right upper extremity. In March the patient had fallen on some stairs had an abrasion to her hand and elbow was having pain in the shoulder also. She was seen by our office here in April therapy was ordered for her shoulder she does have significant [id number]-jq-rrkw glenohumeral osteoarthritis. She states she was advised not to take nonsteroidal anti-inflammatory medications by her primary care physician she is diabetic and she is not sure but she may have some early chronic kidney disease. In any event she is doing better with time and therapy. Her hand wrist and elbow are doing much better her main complaint today is her right shoulder. She has pain with range of motion she can not do anything heavy repetitive which has been a chronic issue since she fell. She has severe osteoarthritis in the right shoulder joint we reviewed her x-rays today in detail. She denies any weakness no new loss of motion she has some chronic stiffness just more discomfort since her fall. She comes in today for recheck she has been going through therapy which she thinks is helping but she would like to continue the therapy for awhile she has only been through 5 visits in the past 2 months. JOEL Ty [address] [facility] [facility] [address], [place], [address], [place] [facility] 06/28/2024 11:40:02 OBGyn Episode No OBEpisode recorded.
--- OUTSIDE RECORDS SUMMARY | 2024-10-01 15:13 | XMS_ITS | Referral Summary ---
Author Organization [facility] [address] Address [address] [place] [address] Care Team Providers Care Salesperson Burial Needs Name Role Phone Matilde Booth MD Primary Care Provider Allergies No known active allergies Medications Lantus Solostar U-100 Insulin 100 unit/mL (3 mL) insulin pen 05/07/2020 Act uriah TRUEplus Pen Needle 31 gauge x 5/16 needle 06/01/2020 Acti ve omega 6-cdf-eyw-fish oil 1,000 mg (120 mg-180 mg) capsule Take 2,000 capsules (2,000,000 mg total) by mouth daily Active aspirin 325 mg tablet Take 1 tablet (325 mg total) by mouth daily 30 tablet 11 12/07/2021 Active rosuvastatin (CRESTOR) 10 mg tabletIndicatio ns:Abnormal CT scan of heart,Type 2 diabetes mellitus without complication, with long-term current use of insulin (HCC),Hyperchol esterolemia Take 1 tablet (10 mg total) by mouth daily 90 tablet 3 02/29/2024 Active Active Problems Problem Noted Date Diagnosed Date Transient atrial fibrillation 12/20/2022 Hyperlipidemia associated with type 2 diabetes m andrewitus 12/20/2022 H/O atrial fibrillation without current medicati on 11/24/[address] scan of heart 11/24/2020 Type 2 diabetes mellitus wit hout complication, with long-term current use of insulin 11/24/2020 Nonrheumatic aortic valve insufficiency 11/25/19 21 Hx pulmonary embolism 11/24/2020 H/O: HTN (hypertension) 11/24/2020 Resolved Problems Problem Noted Date Diagnosed Date Resolved Date Pulmonary embolism during cu rrent hospitalization 11/24/2020 11/24/2020 Mitral valve insufficiency a nd aortic valve insufficiency 11/24/2020 11/24/2020 Social History Tobacco Use Types Packs/Day Years Used Date Smoking Tobacco: Former Cigarettes Q uit: 06/03/1978 Smokeless Tobacco: Never Tobacco Cessation:Counseling Given: Not Answered Alcohol Use Standard Drinks/Week Comments Yes 3 (1 standard drink = 0.6 oz pur e alcohol) occassionally Personal Safety Answer Date Recorded Getting School Help Needed Not on file 08/19 Comments Unknown Sex and Gender Information Value Date Recorded Sex Assigned at Not on file Legal Sex Female 7:48 AM CDT Gender Identity Not on file Sexual Orientation Not on file Last Filed Vital Signs Vital Sign Reading Time Taken Comments Blood Pressure 138/62 01/02/2024 9:52 AM CDT Pulse 71 01/02/2024 9:52 AM CDT Temperature - - Respiratory Rate - - Oxygen Saturation 96% 01/02/2024 9:52 AM CDT Inhaled Oxygen Concentration - - Weight 80.7 kg (178 lb) 01/02/2024 9:52 AM CDT Height 167.6 cm (5' 6 ) 01/02/2024 9:52 AM CDT Body Mass Index 28.73 01/02/2024 9:52 AM CDT Plan of Treatment Not on file Procedures Procedure Name Priority Date/Time Associated Diagnosis Comments POCT LIPID PANEL Routine 01/02/2024 10:2 2 AM CDT Lipid screening from Last 3 Months or Most Recently Relevant to Health Maintenance Results * POCT lipid panel (01/02/2024 10:22 AM CDT) Cholesterol, POC 156 mg/dL HDL, POC 60 mg/dL Triglycerides, POC 70 mg/dL LDL Cholesterol POC 82 mg/dL Chol/HDL Ratio, POC 1.4 Non-HDL Cholesterol, POC 96 mg/dL Cholesterol Total, POC 156 mg/dL Capillary blood 01/02/2024 1 0:22 AM CDT Brinda Payan LINING MACHINE OPERATOR POINT OF CARE TEST ORDERA BLES Final Result from Last 3 Months or Most Recently Relevant to Health Maintenance Insurance COMMERCIAL GENERIC [facility] SENIOR SUPPLEMENT MEDICARE MEDICARE [employer] SENIOR SUPPLEMENT Care Teams Salesperson Burial Needs Relationship Specialty Start Date End Date Matilde Booth MD PCP - General Family Medicine 12/07/21
--- OUTSIDE RECORDS SUMMARY | 2024-10-01 15:13 | XMS_ITS | Clinical Summary ---
Author Organization [facility] [address] Address [address] [place] [address] Care Team Providers Care Cost Specialist Name Role Phone Matilde Booth MD Primary Care Provider Allergies No known active allergies Medications Lantus Solostar U-100 Insulin 100 unit/mL (3 mL) insulin pen 05/07/2020 Act uriah TRUEplus Pen Needle 31 gauge x 5/16 needle 06/01/2020 Acti ve omega 2-sho-dyz-fish oil 1,000 mg (120 mg-180 mg) capsule [...] a nd aortic valve insufficiency 11/24/2020 11/24/2020 Surgical History Surgery Date Site/Laterality Comments TOTAL KNEE ARTHROPLASTY 06/20/2013 - 06/19/2014 Right Medical History Medical History Date Comments Diabetes mellitus (HCC) Atrial fibrillation (HCC) Cataracts, bilateral Kidney stones Pulmonary embolism with acute cor pulmonale (HCC ) 05/17/2020 Nephrolithiasis Social History Tobacco Use Types Packs/Day Years [...] on file Sexual Orientation Not on file Obstetrics History Last Filed Vital Signs Vital Sign Reading [...] 01/02/2024 9:52 AM CDT Plan of Treatment Health Maintenance Due Date Last Done Comments Albumin Creatinine Ratio, Urine 1943 Depression Screening 1943 Fall Risk Assessment 1943 Hemoglobin A1C 1943 Osteoporosis Screening-Bone Density Scan 1943 eGFR 1943 Dilated Eye Exam 1943 Foot Exam 1943 Hepatitis B Screening 1961 Pneumococcal vaccine 65+ (1 of 2 - PCV) 1962 Zoster Vaccine (1 of 2) 1993 Well Visit 65+ 2008 DTaP/Tdap/Td Vaccine (1 - Tdap) 10/27/2010 1 Influenza Vaccine (#1) 2024 Lipid Panel 01/01/2025 01/02/2024, 12/20/2022 Procedures Procedure Name Priority Date/Time Associated Diagnosis [...] 01/02/2024 1 0:22 AM CDT Brinda Payan NP POINT OF CARE TEST ORDERA BLES Final Result from Last 3 Months or Most Recently Relevant to Health Maintenance Insurance COMMERCIAL GENERIC [employer] SENIOR SUPPLEMENT MEDICARE MEDICARE [employer] SENIOR SUPPLEMENT Care Teams Cost Specialist Relationship Specialty Start Date End Date Matilde Booth MD PCP - General Family Medicine 12/07/21
== END 2024-10-01 13:45 | disposition home or self-care (01) ==
LOC: ANHIMG 13:47
PROVIDERS: PCP Family Medicine; Visit Provider Family Medicine
DX: Z12.31 Encounter for screening mammogram for malignant neoplasm of breast (principal)
CPT/HCPCS: 77063; 77067

== ENCOUNTER 2025-02-25 11:04 | Outpatient (CLI) | payer MEDICARE, SELFPAY ==
--- NOTE | ~2025-02-25 | MMUS_ITS ---
EXAMINATION: MM diagnostic dk LT w urban, US breast LT limited INDICATION: 79-year old female; Evaluation of left breast palpable lump COMPARISON: 10/01/2024 through 04/04/2017 TECHNIQUE: Digital breast tomosynthesis CC and MLO views of the LEFT breast and True lateral and spot compression of the LEFT breast were obtained with computer-aided detection to assist in interpretation of the study. A radiopaque skin marker was placed over the area of LEFT breast palpable lump. FINDINGS: The breasts are almost entirely fatty. A superficial circumscribed mass correlates to the radiopaque skin marker. There are no other suspicious masses, calcifications, architectural distortion or any other abnormality in the left breast. LEFT BREAST ULTRASOUND FINDINGS: Targeted sonographic evaluation of the palpable lump area was completed. There is a 0.7 x 0.8 x 0.4 cm superficial isoechoic circumscribed mass at 12:30, 6 cm from the nipple, which correlates to the area of palpable lump identified by the patient. This mass has slightly increased in size when compared with prior. IMPRESSION: Left breast superficial 0.8 cm isoechoic mass at 12:30, 6 cm from the nipple, which appears slightly larger in the interval correlates to the palpable lump area in the LEFT breast. RECOMMENDATIONS: Given the interval change in size and the fact that is palpable, Ultrasound- guided biopsy of isoechoic mass at 12:30 location in the left breast. Annual screening mammography due September 2025. BI-RADS 4, SUSPICIOUS Reviewed, dictated and finalized at location B. IMPRESSION: Left breast superficial 0.8 cm isoechoic mass at 12:30, 6 cm from the nipple, w hich appears slightly larger in the interval correlates to the palpable lump ar ea in the LEFT breast. RECOMMENDATIONS: Given the interval change in size and the fact that is palpable, Ultrasound-semaj ded biopsy of isoechoic mass at 12:30 location in the left breast. Annual screening mammography due September 2025. BI-RADS 4, SUSPICIOUS
--- OUTSIDE RECORDS SUMMARY | 2025-02-25 11:32 | XMS_ITS | Clinical Summary ---
Author Organization [facility] [address] Address [address] [place] [address] Care Team Providers Care Research Greenhouse Supervisor Name Role Phone Matilde Booth MD Primary Care Provider [phone] Allergies No known active allergies Medications Lantus Solostar U-100 Insulin 100 unit/mL (3 mL) insulin pen 05/07/2020 Act uriah TRUEplus Pen Needle 31 gauge x 5/16 needle 06/01/2020 Acti ve omega 2-mhg-ber-fish oil 1,000 mg (120 mg-180 mg) capsule Take 2,000 capsules (2,000,000 mg total) by mouth daily Active rosuvastatin (CRESTOR) 10 mg tabletIndicatio ns:Abnormal CT scan of heart,Type 2 diabetes mellitus without complication, with long-term current use of insulin (HCC),Hyperchol esterolemia Take 1 tablet (10 mg total) by mouth daily 90 tablet 3 02/29/2024 Active aspirin 325 mg tablet Take 1 tablet (325 mg total) by mouth daily 90 tablet 3 10/16/2024 10/17/19 26 Active Active Problems Problem Noted Date Diagnosed Date Other thrombophilia 10/16/2024 Transient atrial fibrillation 12/20/2022 Hyperlipidemia associated with type 2 diabetes m jerry 12/20/2022 H/O atrial fibrillation without current medicati on 11/24/[address] scan of heart 11/24/2020 Type 2 diabetes mellitus wit hout complication, with long-term current use of insulin 11/24/2020 Nonrheumatic aortic valve insufficiency 06/07/20 21 Hx pulmonary embolism 11/24/2020 H/O: HTN [...] stones Pulmonary embolism with acute cor pulmonale 04/21 Nephrolithiasis Social History Tobacco Use Types Packs/Day Years Used Date Smoking Tobacco: Former Cigarettes Q uit: 06/03/1978 Smokeless Tobacco: Never Tobacco Cessation:Counseling Given: Not Answered Alcohol Use Standard Drinks/Week Comments Yes 3 (1 standard drink = 0.6 oz pur e alcohol) occassionally Comments Unknown Sex and Gender Information Value Date Recorded Sex Assigned at Not on file Legal Sex Female 7:48 AM CDT Gender Identity Not on file Sexual Orientation Not on file Obstetrics History Last Filed Vital Signs Vital Sign Reading Time Taken Comments Blood Pressure 120/58 10/16/2024 8:41 AM CDT Pulse 65 10/16/2024 8:41 AM CDT Temperature - - Respiratory Rate - - Oxygen Saturation 99% 10/16/2024 8:41 AM CDT Inhaled Oxygen Concentration - - Weight 81.2 kg (179 lb) 10/16/2024 8:41 AM CDT Height 167.6 cm (5' 6) 10/16/2024 8:41 AM CDT Body Mass Index 28.89 10/16/2024 8:41 AM CDT Plan of Treatment Health Maintenance [...] - Tdap) 10/27/2010 1 Influenza Vaccine (#1) 2025 Lipid Panel 10/16/2025 10/16/2024, 12/18, 12/20/2022 Procedures Procedure Name Priority Date/Time Associated Diagnosis Comments POCT LIPID PANEL Routine 10/16/2024 8:35 AM CDT Hyperlipidemia associated with type 2 diabetes mellitus (HCC) from Last 3 Months or Most Recently Relevant to Health Maintenance Results * POCT lipid panel (10/16/2024 8:35 AM CDT) Cholesterol, POC 134 mg/dL HDL, POC 50 mg/dL Triglycerides, POC 84 mg/dL LDL Cholesterol POC 67 mg/dL Chol/HDL Ratio, POC 1.3 Non-HDL Cholesterol, POC 84 mg/dL Cholesterol Total, POC 134 mg/dL Capillary blood 10/16/2024 8 :35 AM CDT Kain Balderas MD POINT OF CARE TEST ORDERABLES Fi nal Result from Last 3 Months or Most Recently Relevant to Health Maintenance Insurance COMMERCIAL GENERIC [employer] SENIOR SUPPLEMENT MEDICARE MEDICARE [employer] SENIOR SUPPLEMENT Care Teams Research Greenhouse Supervisor Relationship Specialty Start Date End Date Matilde Booth MD PCP - General Family Medicine 12/07/21
== END 2025-02-25 11:05 | disposition home or self-care (01) ==
LOC: ANHFOHIMG 11:05
PROVIDERS: PCP Family Medicine; Visit Provider Student in an Organized Health Care Education/Training Program
DX: N63.20 Unspecified lump in the left breast, unspecified quadrant (principal); R92.8 Other abnormal and inconclusive findings on diagnostic imaging of breast
CPT/HCPCS: 76642; 77061; 77065; G0279

== ENCOUNTER 2025-03-25 09:48 | Outpatient (CLI) | payer MEDICARE, SELFPAY ==
--- NOTE | ~2025-03-25 | MMUS_ITS ---
PROCEDURE: US breast biopsy LT w image, MM post biopsy diagnostic LT CLINICAL HISTORY: 79-year-old female with suspicious superficial left breast mass presents for ultrasound-guided core needle biopsy procedure. COMPARISON: 02/25/2025 Following informed consent including risks, benefits, and possible complications, the patient was brought to the ultrasound suite. A time-out procedure was performed. A preliminary ultrasound of the left breast was performed, redemonstrating an hypoechoic circumscribed mass at 12:30, 6 cm from the nipple. The patient was prepped and draped in the usual sterile fashion. 1% lidocaine was instilled into the subcutaneous tissues. 1% lidocaine without epinephrine was injected into the deep tissues just inferior to the lesion. Approximately 15cc lidocaine was administered. A small skin zahraa was made. Multiple core samples were obtained with a 14-gauge multi pass biopsy needle. A post biopsy metal marker was placed at the biopsy site. Postprocedural mammogram of the left breast in craniocaudal and mediolateral projections reveal the post biopsy metal marker in good position. The patient tolerated the procedure well and was without immediate postprocedural complications. IMPRESSION: Successful ultrasound guided biopsy of left breast mass. A post biopsy metal marker was placed at the biopsy site, which is seen on postprocedural mammogram. The patient tolerated the procedure well without immediate postprocedure complications. The patient was given postprocedural instructions and sent home in stable condition. Reviewed, dictated and finalized at location B. IMPRESSION: Successful ultrasound guided biopsy of left breast mass. A post bio psy metal marker was placed at the biopsy site, which is seen on postprocedural mammogram. The patient tolerated the procedure well without immediate postprocedure compli cations. The patient was given postprocedural instructions and sent home in sta ble condition.
--- OUTSIDE RECORDS SUMMARY | 2025-03-25 10:49 | XMS_ITS | Clinical Summary ---
Author Organization [facility] [address] Address [address] [place] [address] Care Team Providers Care Cooker Cleaner Name Role Phone Matilde Booth MD Primary Care Provider [phone] Allergies No known active allergies Medications Lantus Solostar U-100 Insulin 100 unit/mL (3 mL) insulin pen 0 Active TRUEplus Pen Needle 31 gauge x 5/16 needle 0 Active omega 5-pbs-zgn-fish oil 1,000 mg (120 mg-180 mg) capsule Take 2,000 capsules (2,000,000 mg total) by mouth daily Active aspirin 325 mg tablet Take 1 tablet (325 mg total) by mouth daily 90 tablet 3 5 026 Active rosuvastatin (CRESTOR) 10 mg tabletIndicati ons:Abnormal CT scan of heart,Type 2 diabetes mellitus without complication, with long-term current use of insulin (HCC),Hypercho lesterolemia TAKE 1 TABLET(10 MG) BY MOUTH DAILY 90 tablet 3 5 Active rosuvastatin (CRESTOR) 10 mg tabletIndicati ons:Abnormal CT scan of heart,Type 2 diabetes mellitus without complication, with long-term current use of insulin (HCC),Hypercho lesterolemia Take 1 tablet (10 mg total) by mouth daily 90 tablet 3 4 025 Discontinued Active Problems Problem Noted Date Diagnosed Date Other thrombophilia 10/16/2024 Transient atrial fibrillation 12/20/2022 Hyperlipidemia associated with type 2 diabetes pravin edwards 12/20/2022 H/O atrial fibrillation without current medicati [...] History Medical History Date Comments Diabetes mellitus Atrial fibrillation (HCC) Cataracts, bilateral Kidney stones [...] MEDICARE MEDICARE [employer] S[employer]IOR [employer]MENT Care Teams Cooker Cleaner Relationship Specialty Start Date End Date Matilde Booth MD [phone] (work) PCP - General Family Medicine 12/07/21
--- NOTE | 2025-03-25 11:03 | S_PTH ---
PATIENT: Riddhi Mandujano LOC: [facility] U#:[id number] AGE/SX: 79/F ROOM: RE03/25/[address]: Tanya Ashton PA-C : 1945 BED: DIS: 03/25/2025 SPEC #: [id number] RECD: 03/25/25 11:21 STATUS: SHERICE REChichi #: [id number] TRUMAN: 03/25/25 11:[address]: Tanya Ashton DEPT: [facility] Surgical RECD BY: Iris Llamas ENTERED: 03/25/25 11:21 SP TYPE: Surgical OTHR DR: Matilde Booth, Tissues: A - Breast Biopsy Procedures: Hematoxylin and Eosin Stain Gross and Microscopic Level 4
== END 2025-03-25 09:49 | disposition home or self-care (01) ==
PROVIDERS: PCP Family Medicine; Visit Provider Student in an Organized Health Care Education/Training Program
DX: D24.2 Benign neoplasm of left breast (principal); D17.79 Benign lipomatous neoplasm of other sites; M79.89 Other specified soft tissue disorders; N63.22 Unspecified lump in the left breast, upper inner quadrant
CPT/HCPCS: 19083; 77065; 88305; A4648

== ENCOUNTER 2025-05-06 07:50 | Outpatient (CLI) | payer MEDICARE, SELFPAY ==
--- NOTE | ~2025-05-06 | MMUS_ITS ---
PROCEDURE: US breast biopsy LT w image, MM post biopsy diagnostic LT CLINICAL HISTORY: 79-year-old female recently had a biopsy of left breast mass at 12:30 o'clock location biopsy that yielded benign pathology however the pathology is suggested inadequate specimen. She presents for re-biopsy of the lesion at 12:30 o'clock position to obtain more sample. COMPARISON: 03/25/2025 Following informed consent including risks, benefits, and possible complications, the patient was brought to the ultrasound suite. A time-out procedure was performed. A preliminary ultrasound of the left breast was performed, redemonstrating hypoechoic mass containing biopsy clip at 12:30 o'clock location, 6 cm from the nipple. The patient was prepped and draped in the usual sterile fashion. 1% lidocaine was instilled into the subcutaneous tissues. 1% lidocaine without epinephrine was injected into the deep tissues just inferior to the lesion. Approximately 15cc lidocaine was administered. A small skin zahraa was made. Multiple core samples were obtained with a 13-gauge vacuum assisted biopsy needle. A post biopsy butterfly Ames Marino marker was placed at the biopsy site. Postprocedural mammogram of the left breast in craniocaudal and mediolateral projections reveal the post biopsy metal marker Migrated superior and lateral to the biopsy cavity. The patient tolerated the procedure well and was without immediate postprocedural complications. IMPRESSION: Successful ultrasound guided biopsy of left breast mass. A post biopsy metal marker was placed at the biopsy site, which is seen on postprocedural mammogram. The patient tolerated the procedure well without immediate postprocedure complications. The patient was given postprocedural instructions and sent home in stable condition. Pathology report pending. Reviewed, dictated and finalized at location B. T METAL HELPER IMPRESSION: Successful ultrasound guided biopsy of left breast mass. A post bio psy metal marker was placed at the biopsy site, which is seen on postprocedural mammogram. The patient tolerated the procedure well without immediate postprocedure compli cations. The patient was given postprocedural instructions and sent home in sta ble condition. Pathology report pending.
--- NOTE | 2025-05-06 09:15 | S_PTH ---
PATIENT: Riddhi Mandujano LOC: [facility] U#:[id number] AGE/SX: 79/F ROOM: RE05/06/[address]: Tanya Ashton PA-C : 1945 BED: DIS: 05/06/2025 SPEC #: [id number] RECD: 05/06/25 11:14 STATUS: SHERICE AWAD #: [id number] TRUMAN: 05/06/25 09:[address]: Tanya Ashton DEPT: [facility] Surgical RECD BY: Logan Vanegas ENTERED: 05/06/25 11:15 SP TYPE: Surgical OTHR DR: Darin Rodriguez MD Tissues: A - Breast Biopsy Procedures: Hematoxylin and Eosin Stain Gross and Microscopic Level 4
== END 2025-05-06 07:51 | disposition home or self-care (01) ==
LOC: ANHFOHIMG 07:51
PROVIDERS: PCP Family Medicine Adolescent Medicine; Visit Provider Student in an Organized Health Care Education/Training Program
DX: D18.09 Hemangioma of other sites (principal)
CPT/HCPCS: 19083; 77065; 88305; A4648